=== PATIENT | female | born 1985 | race Caucasian/White ===

== ENCOUNTER → 2016-11-14 | Outpatient (CLI) | payer OTHER ==
--- NOTE | 2016-11-14 08:50 | DX ---
Right Foot , Three History: Follow-up ORIF of proximal first metatarsal fracture, date of surgery September 29, 2016 Comparison: October 15, 2016 Findings: Lateral orthopedic plating of the I cuneiform-first metatarsal joint is seen in stable kellie omic position, with intact hardware. There is periosteal new bone again seen along the lateral aspect of the proximal first metatarsal. The first metatarsal-phalangeal joint remains severely narrowed/fu sed. I do not identify a residual fracture line involving the base of the first metatarsal. Impression: Stable alignment. Healing continues.
== END ==
LOC: BMCIMAGING 08:11
PROVIDERS: ATTEND Podiatrist Foot & Ankle Surgery
DX: S92.311D Displaced fracture of first metatarsal bone, right foot, subsequent encounter for fracture with routine healing (principal)

== ENCOUNTER → 2016-12-03 | Outpatient (CLI) | payer OTHER | LOC: BMCIMAGING 11:26 | PROVIDERS: ATTEND Podiatrist Foot & Ankle Surgery | DX: Z09 Encounter for follow-up examination after completed treatment for conditions other than malignant neoplasm (principal); Z98.1 Arthrodesis status ==